=== PATIENT | male | born 1945 | race Caucasian/White ===

== ENCOUNTER → 2018-07-17 | Outpatient (CLI) | payer MEDICARE ==
[~2018-07-17] MED LIST: IOHEXOL-350 50ML VIAL IV ONE
== END | disposition home or self-care (01) ==
LOC: OIH 07:37
PROVIDERS: ATTEND Internal Medicine Cardiovascular Disease
DX: I70.202 Unspecified atherosclerosis of native arteries of extremities, left leg (principal); I71.4 Abdominal aortic aneurysm, without rupture; R16.1 Splenomegaly, not elsewhere classified; N40.0 Benign prostatic hyperplasia without lower urinary tract symptoms; N28.1 Cyst of kidney, acquired; Z90.49 Acquired absence of other specified parts of digestive tract
CPT/HCPCS: 75635; Q9967

== ENCOUNTER 2019-02-22 09:49 | Day surgery (SDC) | payer MEDICARE ==
[2019-02-18 13:10] LABS: BASOPHILS % (AUTO) 3.7 % (0.0-5.0); EOSINOPHILS % (AUTO) 2.2 % (0.0-8.0); LYMPHOCYTES % (AUTO) 22.1 % (21.0-51.0); MEAN CORPUSCULAR HEMOGLOBIN 32.6 pg (27.0-33.0); MEAN CORPUSCULAR HGB CONC 33.5 g/dL (32.0-36.0); MEAN CORPUSCULAR VOLUME 97.2 fL (79-99); MONOCYTES % (AUTO) 7.3 % (3.0-13.0); NEUTROPHILS % (AUTO) 64.7 % (40.0-77.0); PLATELET COUNT (AUTO) 136 K/uL (130-400); RED BLOOD CELL COUNT(AUTO) 4.74 MIL/uL (4.50-6.20); RED CELL DISTRIBUTION WIDTH 24.6 % (11.0-15.5); WHITE BLOOD COUNT (AUTO) 2.3 K/uL (4.8-10.8)
[2019-02-18 13:13] LABS: APPEARANCE,URINE Clear (CLEAR); BILIRUBIN,URINE Negative (NEGATIVE); COLOR,URINE Yellow (YELLOW); GLUCOSE, URINE (UA) Negative (NEGATIVE); KETONES,URINE Negative (NEGATIVE); LEUKOCYTE ESTERASE ,URINE Negative (NEGATIVE); NITRATE,URINE Negative (NEGATIVE); OCCULT BLOOD,URINE Negative (NEGATIVE); PH,URINE 5.5 (5.0-8.0); PROTEIN,URINE POS 2+ mg/dL (NEGATIVE)
[2019-02-18 13:17] LABS: CREATININE 1.4 mg/dL (0.5-1.5)
[2019-02-18 13:20] LABS: INR 1.07 (0.85-1.15); PARTIAL THROMBOPLASTIN TIME 29.9 SEC (26.3-35.5); PROTHROMBIN TIME 11.2 SEC (9.6-11.6)
[2019-02-18 13:31] VITALS: BP 154/73
[2019-02-18 13:36] LABS: BACTERIA,URINE None Seen /HPF (None Seen); RBC,URINE 0-1 /HPF (0-1); SQUAMOUS EPITHELIAL CELL,UR 0-2 /HPF (0-2); WBC,URINE 0-1 /HPF (0-1)
[2019-02-18 13:37] LABS: HYALINE CASTS, URINE 0-1 /LPF (0-1 /LPF)
[2019-02-18 14:03] LABS: BAND NEUTROPHILS % (MANUAL) 1 % (0-2); BASOPHILS % (MANUAL) 2 % (0-2); EOSINOPHILS % (MANUAL) 1 % (1-6); LYMPHOCYTES % (MANUAL) 32 % (22-44); MAN.DIFF COMMENT-IMPRESSION MANUAL DIFFERENTIAL; MONOCYTES % (MANUAL) 14 % (2-9); PLATELET MORPHOLOGY COMMENT ADEQUATE; SEGMENTED NEUTROPHILS % 50 % (40-70)
--- NOTE | 2019-02-18 14:20 | NUR ---
MEDS INFORMED DANDRE LONGO OF PT HAVING POLYCYTHEMIA VERA AND ASKING ABOUT HYDROXYUREA. PT TO TAKE ASPIRIN AND HYDROXYUREA ON MORNING OF PROCEDURE.
--- NOTE | 2019-02-19 16:30 | NUR ---
LABS ABNORMAL LABS REPORTED TO MATI AMOS, FUTHER ORDERS GIVEN AND WILL BE CARRIED OUT.
--- NOTE | 2019-02-19 16:34 | NUR ---
XRAY ABNORMAL CHEST XRAY NO FURTHER GIVEN ON THAT
[2019-02-22] VITALS (9 sets, daily range): BP systolic 132–163; BP diastolic 68–84
[~2019-02-22] VITALS: Ht 180.3 cm; Wt 93.3 kg
[~2019-02-22 09:49] MED LIST changes: +ASPI-1012 PO; +HYDR500C2 PO; -IOHEXOL-350 50ML VIAL IV ONE; +LEVO88TA7 PO; +LISI-613 PO; +MVIT PO; +OMEP20TA25 PO; +SODIUM CHLORIDE 0.9% 500ML 500 ML IV SCH; +TAMS0.4C32 PO
--- NOTE | 2019-02-22 10:00 | NUR ---
PATIENT ARRIVED PATIENT ARRIVED TO DAY PATIENT ACCOMPANIED BY SIGNIFICANT OTHER (PATRICIO). PATIENT AAOX3, RESPIRATIONS UNLABORED, VITAL SIGNS STABLE, DENIES ANY PAIN AT THIS TIME. PROCEDURE CONFIRMED/VERIFIED WITH PATIENT. HOSPITAL ROUTINE EXPLAINED TO PATIENT AND FRIEND, BOTH VERBALIZED UNDERSTANDING. ALL QUESTIONS/CONCERNS ADDRESSED.
[2019-02-22 11:43] LABS: HEMATOCRIT 45.3 % (42-54); MEAN CORPUSCULAR VOLUME 96.9 fL (79-99); NUCLEATED RED BLOOD CELLS 0.1 % (0.0-0.19); PLATELET COUNT (AUTO) 142 K/uL (130-400); RED BLOOD CELL COUNT(AUTO) 4.67 MIL/uL (4.50-6.20); RED CELL DISTRIBUTION WIDTH 24.4 % (11.0-15.5); WHITE BLOOD COUNT (AUTO) 2.7 K/uL (4.8-10.8)
--- NOTE | 2019-02-22 11:58 | NUR ---
RE: WBC 2.7 INFORMED DANDRE SALEEM REGARDING ABNORMAL WBC 2.7. NO NEW ORDERS RECEIVED.
[2019-02-22 12:08] LABS: BASOPHILS % (MANUAL) 1 % (0-2); EOSINOPHILS % (MANUAL) 2 % (1-6); LYMPHOCYTES % (MANUAL) 25 % (22-44); MAN.DIFF COMMENT-IMPRESSION MANUAL DIFFERENTIAL; MONOCYTES % (MANUAL) 9 % (2-9); PLATELET MORPHOLOGY COMMENT ADEQUATE; SEGMENTED NEUTROPHILS % 63 % (40-70)
[2019-02-22] MEDS ORDERED: HYDR500C2 PO (13:07)
--- NOTE | 2019-02-22 14:10 | NUR ---
PATIENT TRANSFERRED PATIENT TAKEN TO HORTICULTURE/FLORICULTURE TEACHER VIA BED BY MYAH FUNES. PATIENT SIGNIFICANT OTHER INSTRUCTED TO WAIT IN ROOM IN ORDER TO SPEAK TO MD AFTER PROCEDURE.
[2019-02-22] MEDS ORDERED: IODIXANOL 320 MG/ML 100 ML VIAL ONE (14:23)
[2019-02-22] MEDS ORDERED: MIDAZOLAM HCL 1 MG/ML 2ML VIAL ONE ×2 (14:23→14:41)
[2019-02-22] MEDS ORDERED: FENTANYL CITRATE PF 50 MCG/1 ML 2ML VIAL ONE (14:23)
[2019-02-22] MEDS ORDERED: NITROGLYCERIN 5 MG/ML 10 ML VIAL IV ONE (14:23)
[2019-02-22] MEDS ORDERED: HEPARIN SODIUM 1000UNIT/ML 10ML VIAL ONE (14:23)
[2019-02-22] MEDS ORDERED: LIDOCAINE HCL 2% 20ML ONE (14:23)
[2019-02-22] MEDS ORDERED: SODIUM CHLORIDE 0.9% 1000ML 1,000 ML IV SCH (15:10)
[2019-02-22] MEDS ORDERED: ACETAMINOPHEN-CODEINE 300/30MG TAB PO PRN (15:15)
[2019-02-22] MEDS ORDERED: NITROGLYCERIN 0.4 MG SL TAB SL PRN (15:15)
[2019-02-22] MEDS ORDERED: HYDRALAZINE HCL 20 MG/ML VIAL IV PRN (15:15)
[2019-02-22] MEDS ORDERED: GLUCAGON 1MG KIT 1 MG ML IM PRN (15:15)
[2019-02-22] MEDS ORDERED: DEXTROSE 50%-WATER 50 ML DISP.SYRIN IV PRN (15:15)
--- NOTE | 2019-02-22 15:50 | NUR ---
PATIENT RETURNED PATIENT BROUGHT BACK FROM SACK CLEANER VIA BED MYAH FUNES. PATIENT AAOX3, RESPIRATIONS UNLABORED, VITAL SIGNS STABLE, DENIES ANY PAIN. DSTAT TO LEFT GROIN AREA, NO HEMATOMA OR DRAINAGE NOTED. AREA SOFT AND NONTENDER. PATIENT INSTRUCTED TO KEEP LLE STRAIGHT AND FLAT.
--- NOTE | 2019-02-22 16:12 | NUR ---
REPORT/HANDOFF REPORT GIVEN TO TRUDY HYMAN RN AT BEDSIDE USING SBAR. ALL QUESTIONS/CONCERNS ADDRESSED, SITE TO LEFT GROIN WITHOUT HEMATOMA/DRAINAGE.
== END 2019-02-22 19:35 | disposition home or self-care (01) ==
LOC: DAH 09:49
PROVIDERS: ATTEND Internal Medicine Cardiovascular Disease
DX: I70.211 Atherosclerosis of native arteries of extremities with intermittent claudication, right leg (principal); I10 Essential (primary) hypertension; Z88.8 Allergy status to other drugs, medicaments and biological substances; Z79.82 Long term (current) use of aspirin; Z79.899 Other long term (current) drug therapy; Z79.01 Long term (current) use of anticoagulants; Z87.891 Personal history of nicotine dependence; Z82.49 Family history of ischemic heart disease and other diseases of the circulatory system
CPT/HCPCS: 36246; 36415 ×2; 71045; 75630; 80048; 81001; 85025 ×2; 85610; 85730; 93005; A4216; A4221; A4223 ×3; A4606; A4663; C1769; C1894 ×2; J1644; J2250 ×2; J3010; J3490 ×2; Q9967; 99156; 99157

== ENCOUNTER → 2019-03-11 | Outpatient (CLI) | payer MEDICARE ==
[~2019-03-11] MED LIST changes: +REGADENOSON 0.4 MG/5 ML PF SYG IVP ONE; -SODIUM CHLORIDE 0.9% 500ML 500 ML IV SCH
== END | disposition home or self-care (01) ==
LOC: SHCH 07:57
PROVIDERS: ATTEND Internal Medicine Cardiovascular Disease
DX: R06.09 Other forms of dyspnea (principal); R07.89 Other chest pain
CPT/HCPCS: 78452; 93017; 96374; A9500 ×2; J2785

== ENCOUNTER → 2021-08-02 | Outpatient (CLI) | payer MEDICARE ==
[~2021-08-02] MED LIST changes: -LISI-613 PO; +LISI20TA24 PO; -REGADENOSON 0.4 MG/5 ML PF SYG IVP ONE
== END | disposition home or self-care (01) ==
LOC: RAH 09:06
PROVIDERS: ATTEND Internal Medicine Cardiovascular Disease
DX: I71.4 Abdominal aortic aneurysm, without rupture (principal); I70.8 Atherosclerosis of other arteries; I35.0 Nonrheumatic aortic (valve) stenosis; I70.201 Unspecified atherosclerosis of native arteries of extremities, right leg; Z95.828 Presence of other vascular implants and grafts
CPT/HCPCS: 76775; 93925

== ENCOUNTER → 2022-03-21 | Outpatient (CLI) | payer MEDICARE ==
[~2022-03-21] MED LIST changes: +OMEP20TA20 PO; -OMEP20TA25 PO
== END | disposition home or self-care (01) ==
LOC: SHCH 10:28
PROVIDERS: ATTEND Internal Medicine Cardiovascular Disease
DX: I35.8 Other nonrheumatic aortic valve disorders (principal); I11.9 Hypertensive heart disease without heart failure
CPT/HCPCS: 93306

== ENCOUNTER → 2022-05-07 | Outpatient (CLI) | payer MEDICARE | END | disposition home or self-care (01) | LOC: RAH 11:03 | PROVIDERS: ATTEND Internal Medicine Nephrology | DX: M47.816 Spondylosis without myelopathy or radiculopathy, lumbar region (principal); M54.9 Dorsalgia, unspecified; M48.061 Spinal stenosis, lumbar region without neurogenic claudication | CPT/HCPCS: 72148 ==

== ENCOUNTER 2022-05-27 09:00 | Observation (INO) | payer MEDICARE ==
[~2022-05-27] VITALS: Ht 180.3 cm; Wt 79.3 kg
[~2022-05-27 09:00] MED LIST changes: -ASPI-1012 PO; -HYDR500C2 PO; -LISI20TA24 PO; -MVIT PO; -OMEP20TA20 PO
[2022-05-27 09:54] LABS: BASOPHILS % (AUTO) 2.7 % (0.0-5.0); EOSINOPHILS % (AUTO) 3.6 % (0.0-8.0); HEMATOCRIT 32.6 % (42-54); MEAN CORPUSCULAR HEMOGLOBIN 28.2 pg (27.0-33.0); MEAN CORPUSCULAR HGB CONC 32.2 g/dL (32.0-36.0); MEAN CORPUSCULAR VOLUME 87.6 fL (79-99); MONOCYTES % (AUTO) 5.5 % (3.0-13.0); NEUTROPHILS % (AUTO) 63.2 % (40.0-77.0); NUCLEATED RED BLOOD CELLS 0.5 % (0.0-0.19); PLATELET COUNT (AUTO) 262 K/uL (130-400); RED BLOOD CELL COUNT(AUTO) 3.72 MIL/uL (4.50-6.20); RED CELL DISTRIBUTION WIDTH 17.1 % (11.0-15.5); WHITE BLOOD COUNT (AUTO) 4.4 K/uL (4.8-10.8)
[2022-05-27 10:04] LABS: INR 1.15 (0.85-1.15); PROTHROMBIN TIME 12.4 SEC (9.6-11.6)
[2022-05-27 10:05] LABS: PARTIAL THROMBOPLASTIN TIME 34.9 SEC (26.3-35.5)
[2022-05-27 13:03] VITALS: BP 179/84
[2022-05-27] MEDS ORDERED: VITAMIN B12 PO (14:57)
[2022-05-27] MEDS ORDERED: CLOP75TA32 PO (14:57)
[2022-05-27] MEDS ORDERED: SODI650T PO (14:57)
[2022-05-27] MEDS ORDERED: PRAV20TA4 PO (14:57)
[2022-05-27] MEDS ORDERED: MV,M1TAB4 PO (14:57)
[2022-05-27] MEDS ORDERED: RUXO5TAB PO (14:57)
[2022-05-27] MEDS ORDERED: BACL10TA PO (14:57)
[2022-05-27] MEDS ORDERED: COLLAGEN PO (14:57)
[2022-05-27] MEDS ORDERED: FOLI0.8C PO (14:57)
[2022-05-27] MEDS ORDERED: OXYB10TA4 PO (14:57)
[2022-05-27] MEDS ORDERED: ALLO100T PO (14:57)
[2022-05-27] MEDS ORDERED: SERT-439 PO (14:57)
[2022-05-27] MEDS ORDERED: FURO20TA4 PO (14:57)
[2022-05-28] VITALS (26 sets, daily range): BP systolic 107–166; BP diastolic 47–76
[2022-05-28] MEDS ORDERED: BUPIVACAINE/EPI/PF 0.5% 30ML VIAL IJ ONE ×2 (04:54→05:34)
[2022-05-28] MEDS ORDERED: CEFAZOLIN SODIUM 1 GM VIAL ONE (04:54)
[2022-05-28] MEDS ORDERED: THROMBIN-JMI 20000 UNIT KIT TP ONE (04:55)
[2022-05-28] MEDS ORDERED: MORPHINE PF 100MG/10ML AMP IV ONE (04:56)
[2022-05-28] MEDS: CEFAZOLIN SODIUM 2 GM VIAL IVPB SCH ×2 (05:00→08:00)
[2022-05-28] MEDS ORDERED: LACTATED RINGERS 1000ML 1,000 ML IV ONE (05:55)
[2022-05-28 06:41] LABS: EOSINOPHILS % (AUTO) 3.8 % (0.0-8.0); LYMPHOCYTES % (AUTO) 17.2 % (21.0-51.0); MEAN CORPUSCULAR HEMOGLOBIN 27.9 pg (27.0-33.0); MEAN CORPUSCULAR HGB CONC 31.1 g/dL (32.0-36.0); MEAN CORPUSCULAR VOLUME 89.7 fL (79-99); MONOCYTES % (AUTO) 5.3 % (3.0-13.0); NEUTROPHILS % (AUTO) 66.6 % (40.0-77.0); NUCLEATED RED BLOOD CELLS 0.8 % (0.0-0.19); PLATELET COUNT (AUTO) 266 K/uL (130-400); RED CELL DISTRIBUTION WIDTH 17.1 % (11.0-15.5)
[2022-05-28 06:50] LABS: INR 1.13 (0.85-1.15); PROTHROMBIN TIME 12.2 SEC (9.6-11.6)
[2022-05-28 06:51] LABS: PARTIAL THROMBOPLASTIN TIME 33.6 SEC (26.3-35.5)
[2022-05-28 06:53] LABS: POTASSIUM 5.2 mmol/L (3.5-5.1)
[2022-05-28] MEDS ORDERED: SUCCINYLCHOLINE CHLORIDE 20 MG/ML 10 ML VIAL ONE (06:59)
[2022-05-28] MEDS ORDERED: LIDOCAINE PF 100MG/5ML (2%) SYRINGE 5ML ONE (06:59)
[2022-05-28] MEDS ORDERED: ONDANSETRON 4MG INJ ONE ×2 (07:01→09:57)
[2022-05-28] MEDS ORDERED: DEXAMETHASONE SOD PHOSPHATE 10MG/ML 1ML VIAL ONE ×2 (07:01→07:04)
[2022-05-28] MEDS ORDERED: PROPOFOL 10 MG/ML 20ML VIAL IV ONE (07:01)
[2022-05-28] MEDS ORDERED: GLYCOPYRROLATE 1 MG/5 ML SYRINGE ONE (07:01)
[2022-05-28] MEDS ORDERED: NEOSTIGMINE 5MG/5ML SYR IV ONE (07:01)
[2022-05-28] MEDS ORDERED: MIDAZOLAM HCL 1 MG/ML 2ML VIAL ONE (07:01)
[2022-05-28] MEDS ORDERED: ROCURONIUM 10MG/1ML SYR 10 MG/ML ML ONE ×2 (07:02→07:07)
[2022-05-28] MEDS ORDERED: FENTANYL CITRATE PF 50 MCG/1 ML 2ML VIAL ONE ×2 (07:02→08:33)
[2022-05-28] MEDS ORDERED: PHENYLEPHRINE HCL 10 MG/ML 1ML VIAL IV ONE (10:01)
[2022-05-28] MEDS ORDERED: ARTIFICIAL TEARS 3.5 GM OINTMENT ONE (10:08)
[2022-05-28] MEDS ORDERED: EPHEDRINE SULFATE 50 MG/ML AMPULE ONE (10:38)
[2022-05-28] MEDS ORDERED: OXYMETAZOLINE HCL SPRAY 15 ML BOTTLE ONE (11:06)
[2022-05-28] MEDS ORDERED: FUROSEMIDE 40MG VIAL ONE (11:12)
[2022-05-28] MEDS ORDERED: MORPHINE 2 MG SYG IVP PRN (11:30)
[2022-05-28] MEDS ORDERED: 0.9%NACL 10ML VIAL IVP PRN (11:30)
[2022-05-28] MEDS ORDERED: PROMETHAZINE HCL 25 MG/ML 1ML AMPULE IM PRN (11:30)
[2022-05-28] MEDS: DEXAMETHASONE SOD PHOSPHATE 4 MG/ML 1ML VIAL IVP SCH ×3 (11:30→23:33)
[2022-05-28] MEDS ORDERED: BACLOFEN 10 MG TABLET PO PRN (11:30)
[2022-05-28] MEDS: LACTATED RINGERS 1000ML 1,000 ML IV SCH (13:19)
[2022-05-28] MEDS ORDERED: CEFAZOLIN SODIUM 1 GM VIAL IVPB SCH (14:00)
[2022-05-28] MEDS: TAMSULOSIN HCL 0.4 MG CAP.ER.24H PO SCH (19:52)
[2022-05-28] MEDS: SERTRALINE HCL 50 MG TABLET PO SCH (19:52)
[2022-05-28] MEDS: SODIUM BICARBONATE 650 MG TAB PO SCH (19:53)
[2022-05-28] MEDS: FUROSEMIDE 20 MG TABLET PO SCH (19:53)
[2022-05-28] MEDS ORDERED: LEVOTHYROXINE 88 MCG TABLET PO SCH (21:00)
[2022-05-28] MEDS ORDERED: PRAVASTATIN 20 MG PO SCH (21:00)
[2022-05-29] VITALS: BP 123/68
[2022-05-29] MEDS: LACTATED RINGERS 1000ML 1,000 ML IV SCH ×2 (00:50→14:10)
[2022-05-29 04:00] VITALS: BP 124/59
[2022-05-29] MEDS: CEFAZOLIN SODIUM 2 GM VIAL IVPB SCH (04:39)
[2022-05-29] MEDS: DEXAMETHASONE SOD PHOSPHATE 4 MG/ML 1ML VIAL IVP SCH ×2 (05:22→11:30)
[2022-05-29 08:00] VITALS: BP 115/59
[2022-05-29] MEDS: TAMSULOSIN HCL 0.4 MG CAP.ER.24H PO SCH (08:41)
[2022-05-29] MEDS: SERTRALINE HCL 50 MG TABLET PO SCH (08:41)
[2022-05-29] MEDS: SODIUM BICARBONATE 650 MG TAB PO SCH (08:41)
[2022-05-29] MEDS: FUROSEMIDE 20 MG TABLET PO SCH (08:41)
[2022-05-29] MEDS ORDERED: FOLIC ACID 1 MG TABLET PO SCH (09:00)
[2022-05-29] MEDS ORDERED: JAKAFI 5 MG PO SCH (09:00)
[2022-05-29] MEDS ORDERED: MULTIVITAMIN WITH MINERALS TABLET PO SCH (09:00)
[2022-05-29] MEDS ORDERED: OXYBUTYNIN 5 MG TAB.SR.24H PO SCH (09:00)
[2022-05-29] MEDS ORDERED: CYANOCOBALAMIN (VITAMIN B-12) 1,000 MCG TABLET PO SCH (09:00)
[2022-05-29] MEDS ORDERED: ALLOPURINOL 100 MG TABLET PO SCH (09:00)
[2022-05-29] MEDS ORDERED: COLLAGEN PO SCH (09:00)
[2022-05-29 11:51] VITALS: BP 126/69
[2022-05-29] MEDS: HYDROCODONE/ACETAMINOPHEN 5/325 MG TAB PO PRN ×2 (13:02→15:22)
== END 2022-05-29 17:00 | disposition home or self-care (01) ==
LOC: EDSTATUS 09:00 → DAHIP 05-28 05:55 → 3DH 05-28 12:40
PROVIDERS: ADMIT Neurological Surgery; ATTEND Neurological Surgery
DX: M48.061 Spinal stenosis, lumbar region without neurogenic claudication (principal); Z20.822 Contact with and (suspected) exposure to COVID-19; M46.06 Spinal enthesopathy, lumbar region; D45 Polycythemia vera; I73.9 Peripheral vascular disease, unspecified; Z88.8 Allergy status to other drugs, medicaments and biological substances; Z79.899 Other long term (current) drug therapy
CPT/HCPCS: 80048 ×2; 85025 ×2; 85610 ×2; 85730 ×2; 87426; 36415 ×2; 71045; 63047; 63048 ×3; 96374; 96376 ×2; 96375; 72020; A6260; J1100 ×5; G0378 ×29; A4663; J7120 ×3; A4344; J3010 ×2; J0690 ×3; J3490 ×4; J2710; J0330; J2001; J2250; J2704; J2274; J2405 ×2; J1940; J2370; A4649 ×2; A4215; A4223; A4222; A4221; A4600

== ENCOUNTER → 2023-03-20 | Outpatient (CLI) | payer MEDICARE ==
[~2023-03-20] MED LIST changes: +ALLO100T PO; +BACL10TA PO; +COLLAGEN PO; +FOLI0.8C PO; +FURO20TA4 PO; +MV,M1TAB4 PO; +OXYB10TA4 PO; +PRAV20TA4 PO; +RUXO5TAB PO; +SERT-439 PO; +SODI650T PO; +VITAMIN B12 PO
== END | disposition home or self-care (01) ==
LOC: SHCH 10:47
PROVIDERS: ATTEND Internal Medicine Cardiovascular Disease
DX: I87.2 Venous insufficiency (chronic) (peripheral) (principal); I70.203 Unspecified atherosclerosis of native arteries of extremities, bilateral legs
CPT/HCPCS: 93970

== ENCOUNTER → 2023-07-17 | Outpatient (CLI) | payer MEDICARE | END | disposition home or self-care (01) | LOC: SHCH 11:24 | PROVIDERS: ATTEND Internal Medicine Cardiovascular Disease | DX: I34.0 Nonrheumatic mitral (valve) insufficiency (principal); R01.1 Cardiac murmur, unspecified; R06.09 Other forms of dyspnea; I11.9 Hypertensive heart disease without heart failure | CPT/HCPCS: 93306 ==

== ENCOUNTER → 2023-12-12 | Outpatient (CLI) | payer MEDICARE | END | disposition home or self-care (01) | LOC: RAH 12:07 | PROVIDERS: ATTEND Internal Medicine Nephrology | DX: R10.9 Unspecified abdominal pain (principal); M47.815 Spondylosis without myelopathy or radiculopathy, thoracolumbar region; Z90.49 Acquired absence of other specified parts of digestive tract | CPT/HCPCS: 74018 ==

== ENCOUNTER → 2024-04-13 | Outpatient (CLI) | payer MEDICARE ==
--- NOTE | 2024-04-13 14:49 | HMCIMG ---
CHEST 2VWS REASON: CHEST PAIN, COUGH COMPARISON: 03/22/2024 FINDINGS: Two views of the chest were obtained. Lungs are clear. Heart size is normal. There is no pulmonary vascular congestion. Mediastinum and bony thorax appear unremarkable. Right-sided PermCath is again noted. IMPRESSION: 1. No acute process seen in the chest.
== END | disposition home or self-care (01) ==
LOC: RAH 14:00
PROVIDERS: ATTEND Internal Medicine Nephrology
DX: R07.9 Chest pain, unspecified (principal); R06.02 Shortness of breath
CPT/HCPCS: 71046

== ENCOUNTER → 2024-05-25 | Outpatient (CLI) | payer MEDICARE ==
[2024-05-25 12:04] LABS: BASOPHILS # (AUTO) 0.52 K/uL (0.00-0.20); EOSINOPHILS # (AUTO) 0.21 K/uL (0.00-0.70); EOSINOPHILS % (AUTO) 2.8 % (0.0-8.0); HEMATOCRIT 44.6 % (42-54); IMMATURE GRANULOCYTE ABSOLUTE 0.75 K/uL (0-1); LYMPHOCYTES # (AUTO) 1.1 K/uL (1.0-4.8); LYMPHOCYTES % (AUTO) 14.7 % (21.0-51.0); MEAN CORPUSCULAR HEMOGLOBIN 28.7 pg (27.0-33.0); MEAN CORPUSCULAR HGB CONC 31.6 g/dL (32.0-36.0); MEAN CORPUSCULAR VOLUME 90.7 fL (79-99); MONOCYTES # (AUTO) 0.5 K/uL (0.1-1.0); MONOCYTES % (AUTO) 6.7 % (3.0-13.0); NEUTROPHILS # (AUTO) 4.3 K/uL (1.8-7.7); NEUTROPHILS % (AUTO) 58.7 % (40.0-77.0); NUCLEATED RED BLOOD CELLS 1.2 % (0.0-0.19); PLATELET COUNT (AUTO) 112 K/uL (130-400); RED BLOOD CELL COUNT(AUTO) 4.92 MIL/uL (4.50-6.20); RED CELL DISTRIBUTION WIDTH 17.5 % (11.0-15.5); WHITE BLOOD COUNT (AUTO) 7.4 K/uL (4.8-10.8)
[2024-05-25 12:14] LABS: CREATININE 3.7 mg/dL (0.5-1.3); INR 1.12 (0.85-1.15); POTASSIUM 4.7 mmol/L (3.5-5.1); PROTHROMBIN TIME 12.4 SEC (9.6-11.6)
[2024-05-25 12:15] LABS: PARTIAL THROMBOPLASTIN TIME 34.3 SEC (26.3-35.5)
[2024-05-25 13:48] LABS: BAND NEUTROPHILS % (MANUAL) 17 % (0-2); BASOPHILS % (MANUAL) 12 % (0-2); EOSINOPHILS % (MANUAL) 2 % (1-6); LYMPHOCYTES % (MANUAL) 25 % (22-44); SEGMENTED NEUTROPHILS % 44 % (40-70); TOTAL CELLS COUNTED 100
[2024-05-25 13:49] LABS: MAN.DIFF COMMENT-IMPRESSION MANUAL DIFFERENTIAL; PLATELET MORPHOLOGY COMMENT SLIGHTLY DECREASED; WBC MORPHOLOGY CONSISTENT W/DIFF
== END | disposition home or self-care (01) ==
LOC: LAB 10:59
PROVIDERS: ATTEND Internal Medicine Cardiovascular Disease
DX: Z01.812 Encounter for preprocedural laboratory examination (principal); I87.2 Venous insufficiency (chronic) (peripheral); I87.1 Compression of vein; R06.02 Shortness of breath
CPT/HCPCS: 36415; 80048; 85025; 85610; 85730

== ENCOUNTER → 2024-10-11 | Outpatient (CLI) | payer MEDICARE ==
[~2024-10-11] MED LIST changes: -PRAV20TA4 PO; +PRAV20TA59 PO
[2024-10-11 08:27] LABS: BASOPHILS # (AUTO) 0.74 K/uL (0.00-0.20); BASOPHILS % (AUTO) 7.4 % (0.0-5.0); EOSINOPHILS # (AUTO) 0.29 K/uL (0.00-0.70); EOSINOPHILS % (AUTO) 2.9 % (0.0-8.0); HEMATOCRIT 40.6 % (42-54); IMMATURE GRANULOCYTE ABSOLUTE 1.19 K/uL (0-1); LYMPHOCYTES # (AUTO) 1.4 K/uL (1.0-4.8); MEAN CORPUSCULAR HEMOGLOBIN 28.2 pg (27.0-33.0); MEAN CORPUSCULAR HGB CONC 30.5 g/dL (32.0-36.0); MEAN CORPUSCULAR VOLUME 92.3 fL (79-99); MONOCYTES # (AUTO) 0.6 K/uL (0.1-1.0); MONOCYTES % (AUTO) 6.4 % (3.0-13.0); NEUTROPHILS # (AUTO) 5.7 K/uL (1.8-7.7); NEUTROPHILS % (AUTO) 57.3 % (40.0-77.0); NUCLEATED RED BLOOD CELLS 3.2 % (0.0-0.19); PLATELET COUNT (AUTO) 50 K/uL (130-400); RED CELL DISTRIBUTION WIDTH 18.8 % (11.0-15.5)
[2024-10-11 08:38] LABS: ALBUMIN 2.8 g/dL (3.5-5.0); CREATININE 6.7 mg/dL (0.5-1.3); INR 1.25 (0.85-1.15); POTASSIUM 5.8 mmol/L (3.5-5.1); TOTAL PROTEIN, SERUM 6.2 g/dL (6.0-8.3)
[2024-10-11 08:40] LABS: PARTIAL THROMBOPLASTIN TIME 34.5 SEC (26.3-35.5)
--- NOTE | 2024-10-11 09:00 | NUR ---
U/S GD PARACENTESIS NOT DONE U/S PERFORMED BY Hernán CHINO RDMS. IMAGES VIEWED BY DR Cecilia OCASIO. PER DR OCASIO NOT ENOUGH FLUID TO SAFELY PERFORM PROCEDURE. PT INFORMED OF OUTCOME. DISCHARGE VIA AMBULATORY. DENIES PAIN. A&O.
[2024-10-11 09:11] LABS: BAND NEUTROPHILS % (MANUAL) 1 % (0-2); BASOPHILS % (MANUAL) 1 % (0-2); EOSINOPHILS % (MANUAL) 5 % (1-6); LYMPHOCYTES % (MANUAL) 22 % (22-44); MONOCYTES % (MANUAL) 1 % (2-9); PROMYELOCYTES % 2 (0-0); REACTIVE LYMPHOCYTES 6 % (0-0); SEGMENTED NEUTROPHILS % 62 % (40-70); TOTAL CELLS COUNTED 100
[2024-10-11 09:24] LABS: MAN.DIFF COMMENT-IMPRESSION MANUAL DIFFERENTIAL
[2024-10-11 09:25] LABS: PLATELET MORPHOLOGY COMMENT DECREASED
--- NOTE | 2024-10-11 13:06 | HMCIMG ---
Ascites SCAN History: Abdominal distention FINDINGS: There is a minimal amount of ascitic fluid. It is not enough for ultrasound-guided paracentesis. IMPRESSION: Minimal ascites, not enough for ultrasound-guided paracentesis.
== END | disposition home or self-care (01) ==
LOC: RAH 07:51
PROVIDERS: ATTEND Internal Medicine Gastroenterology
DX: R18.8 Other ascites (principal); Z51.81 Encounter for therapeutic drug level monitoring
CPT/HCPCS: 36415; 76705; 80053; 85025; 85610; 85730

== ENCOUNTER → 2025-01-12 | Outpatient (CLI) | payer MEDICARE ==
--- NOTE | 2025-01-12 10:30 | NUR ---
ULTRASOUND GUIDED PARACENTESIS PROCEDURE PERFORMED BY DR. HARPAL MARTINEZ. PUNCTURE SITE RLQ AND PATIENT TOLERATED PROCEDURE WELL. TOTAL REMOVED 4.0 LITERS OF CLEAR, YELLOW ASCITES FLUID. END OF PROCEDURE AT 1015. CATHETER REMOVED AND DRESSING APPLIED- NO BLEEDING NOTED. DISCHARGE INSTRUCTIONS GIVEN TO PATIENT AND VERBALIZED UNDERSTANDING. PATIENT DISCHARGED AMBULATORY- ALERT WITH NO C/O PAIN.
== END | disposition home or self-care (01) ==
LOC: RAH 08:54
PROVIDERS: ATTEND Internal Medicine Nephrology
DX: R18.8 Other ascites (principal); R19.8 Other specified symptoms and signs involving the digestive system and abdomen; I95.9 Hypotension, unspecified; R14.0 Abdominal distension (gaseous); M54.89 Other dorsalgia; R26.9 Unspecified abnormalities of gait and mobility; D69.6 Thrombocytopenia, unspecified; M62.81 Muscle weakness (generalized); M48.061 Spinal stenosis, lumbar region without neurogenic claudication; M51.361 Other intervertebral disc degeneration, lumbar region with lower extremity pain only; N40.0 Benign prostatic hyperplasia without lower urinary tract symptoms; M10.9 Gout, unspecified; N18.6 End stage renal disease; G47.00 Insomnia, unspecified; E03.9 Hypothyroidism, unspecified; E11.22 Type 2 diabetes mellitus with diabetic chronic kidney disease; E11.40 Type 2 diabetes mellitus with diabetic neuropathy, unspecified; G47.33 Obstructive sleep apnea (adult) (pediatric); E11.51 Type 2 diabetes mellitus with diabetic peripheral angiopathy without gangrene; K21.9 Gastro-esophageal reflux disease without esophagitis; F32.A Depression, unspecified; Z90.49 Acquired absence of other specified parts of digestive tract; Z98.890 Other specified postprocedural states; Z88.1 Allergy status to other antibiotic agents; Z88.8 Allergy status to other drugs, medicaments and biological substances; Z79.899 Other long term (current) drug therapy
CPT/HCPCS: 49083; C1729

== ENCOUNTER → 2025-03-16 | Outpatient (CLI) | payer MEDICARE ==
--- NOTE | 2025-03-16 11:05 | NUR ---
U/S GD PARACENTESIS PROCEDURE PERFORMED BY DR MARTINEZ. PUNCTURE SITE LLQ AND PATIENT TOLERATED PROCEDURE WELL. TOTAL REMOVED 7.5 LITERS OF ASHWINI CLOUDY FLUID. ALBUMIN 25% 50 GRAMS IV GIVEN DURING PROCEDURE. END OF PROCEDURE AT 1045. CATHETER REMOVED AND DRESSING APPLIED. NO BLEEDING NOTED. DISCHARGE INSTRUCTIONS GIVEN TO PATIENT AND SPOUSE; VERBALIZED UNDERSTANDING. DISCHARGED VIA WHEELCHAIR. AAO X3 WITH NO C/O PAIN. WRITTEN REPORT GIVEN TO SPOUSE FOR [facility].
[2025-03-16 11:29] LABS: ASPARTATE AMINOTRANSFERASE 36.0 U/L (10-37); CREATININE 4.7 mg/dL (0.5-1.3); GLOMERULAR FILTR. RATE CALC 12.0 mL/min (>90); GLUCOSE,RANDOM 75.0 mg/dL (70-105); SODIUM SERUM 137.0 mmol/L (136-145); TOTAL PROTEIN, SERUM 5.4 g/dL (6.0-8.3); UREA NITROGEN, BLOOD 39.0 mg/dL (7-18)
[2025-03-16] MEDS: ALBUMIN HUMAN 25% 200 ML IV ONE (12:01)
--- NOTE | 2025-03-17 08:46 | HMCIMG ---
US ABDOMINAL PARACENTESIS IR REASON: ASCITES The procedure was done by Chasity Gregory MD PGY2 with Dr Hale TECHNIQUE: Paracentesis was performed with ultrasound guidance. The puncture site was selected in the Right lower quadrant and overlying skin prepped and draped in a sterile fashion. 1% Xylocaine infiltration was performed. Catheter was placed in the fluid using trocar technique. 7.5 were removed. Fluid sample was submitted for laboratory evaluation. The patient showed no evidence of complication during the procedure. Albumin was given. Patient tolerated procedure well IMPRESSION: 1. Ultrasound-guided paracentesis.
== END ==
LOC: RAH 09:16
PROVIDERS: ATTEND Internal Medicine Nephrology
DX: R18.8 Other ascites (principal); I12.9 Hypertensive chronic kidney disease with stage 1 through stage 4 chronic kidney disease, or unspecified chronic kidney disease; E11.22 Type 2 diabetes mellitus with diabetic chronic kidney disease; N18.30 Chronic kidney disease, stage 3 unspecified; G47.33 Obstructive sleep apnea (adult) (pediatric); E03.9 Hypothyroidism, unspecified; M10.9 Gout, unspecified; E11.40 Type 2 diabetes mellitus with diabetic neuropathy, unspecified; F32.A Depression, unspecified; K21.9 Gastro-esophageal reflux disease without esophagitis; Z90.49 Acquired absence of other specified parts of digestive tract; Z88.1 Allergy status to other antibiotic agents; Z79.899 Other long term (current) drug therapy; Z98.890 Other specified postprocedural states
CPT/HCPCS: 49083; 80053; 36415; P9046; C1729